=== PATIENT | female | born 1975 | race Hispanic/Latino ===

== ENCOUNTER 2018-04-28 14:39 | Inpatient (IN) | payer OTHER ==
[~2018-04-28] VITALS: Ht 154.9 cm; Wt 84.1 kg
[2018-04-28] MEDS ORDERED: KETOROLAC TROMETHAMINE 30 MG/ML VIAL IV STA (15:38)
[2018-04-28] MEDS ORDERED: ONDANSETRON HCL INJ 2 MG/ML VIAL IV STA (15:46)
[2018-04-28] MEDS ORDERED: SODIUM CHLORIDE 0.9% 1000ML 1,000 ML IV SCH (16:00)
--- NOTE | 2018-04-28 16:48 | Diagnostic Imaging Report ---
EXAM: Right upper quadrant abdominal ultrasound INDICATION: Right upper quadrant pain COMPARISON: None. TECHNIQUE: Transverse and longitudinal images of the right upper quadrant abdomen were obtained FINDINGS: Liver: Size: Measures 16 cm in the right midclavicular line, normal Appearance: Increased echogenicity, smooth contour Mass: No focal masses Gallbladder: No distension, pericholecystic fluid, wall thickening, stone, or reported sonographic Ly's sign. Gallbladder wall measures 0.35 cm. Small amount of sludge is present at the gallbladder neck. Bile Ducts: Intrahepatic Ducts: No dilatation Extrahepatic Ducts: Common bile duct measures 0.5 cm, no dilatation Pancreas: Partially visualized. The visualized portions of the pancreas appear unremarkable. Kidney: The right kidney measures 9.7 x 4.9 x 5 cm without evidence of hydronephrosis or stone. Vessels: Aorta: Not well seen. Inferior Vena Cava: Not well seen. Main Portal Vein: 1.1 cm, normal size with hepatopetal flow. Free Fluid: No ascites or pleural effusion IMPRESSION: Hepatomegaly with hepatic steatosis. Small amount of gallbladder sludge without sonographic evidence of cholecystitis. Signed by: Dr. Kathrine Newsome MD on 04/28/2018 4:45 PM
[2018-04-28] MEDS ORDERED: HYDROMORPHONE 1MG/1ML INJ IV PRN (18:00)
[2018-04-28] MEDS ORDERED: PIPER-TAZ 3.375 GM / NS 50ML IV SCH (18:00)
[2018-04-28] MEDS ORDERED: MORPHINE SULFATE 2 MG/ML SYR IV STA (18:01)
[2018-04-28] MEDS: ONDANSETRON HCL INJ 2 MG/ML VIAL IV PRN ×2 (18:30→22:40)
[2018-04-28 21:04] LABS: BASOPHILS # (AUTO) 0.1 (0.0-0.1); BASOPHILS % 0.4 % (0.0-1.0); EOSINOPHILS % 0.2 % (0.0-6.0); HEMATOCRIT 40.6 % (34.2-44.1); HEMOGLOBIN 15.6 g/dL (12.0-16.0); LYMPHOCYTES # (AUTO) 0.8 (1.0-3.2); LYMPHOCYTES % 5.8 % (18.0-39.1); MEAN CORPUSCULAR HEMOGLOBIN 35.5 pg (28-32); MEAN CORPUSCULAR HGB CONC 38.4 g/dL (31-35); MEAN CORPUSCULAR VOLUME 92.5 fL (81-99); MONOCYTES # (AUTO) 0.6 (0.2-0.8); MONOCYTES % 4.7 % (4.4-11.3); NEUTROPHILS % 88.7 % (38.7-80.0); PLATELET COUNT 286 x10e3/uL (140-360); RED BLOOD COUNT 4.39 x10e6/uL (3.6-5.1); RED CELL DISTRIBUTION WIDTH 13.2 % (11.7-14.4)
[2018-04-28 21:15] LABS: ALBUMIN/GLOBULIN RATIO 0.6 (0.8-2.0); ALKALINE PHOSPHATASE 71 IU/L (40-150); AMYLASE 338 U/L (25-125); BLOOD UREA NITROGEN 11 mg/dL (7-26); BUN/CREATININE RATIO 14 (6-25); CHLORIDE 96 mmol/L (98-107); CREATININE, SERUM 0.77 mg/dL (0.57-1.11); EST GLOMERULAR FILTRATION RATE > 60 ML/MIN (60-); GLUCOSE 97 mg/dL (74-118); POTASSIUM 3.9 mmol/L (3.5-5.1); SODIUM 129 mmol/L (136-145)
[2018-04-28 21:16] VITALS: BP 143/84
[2018-04-28 21:26] VITALS: BP 143/84
[2018-04-28] MEDS: D5.45%NS/KCL 20MEQ 1,000 ML IV SCH (22:37)
[2018-04-28] MEDS: HYDROMORPHONE 2MG/ML 2 MG/ML ML IV PRN (22:40)
[2018-04-29 00:14] VITALS: BP 129/64
[2018-04-29] MEDS: PIPER-TAZ 3.375 GM 50 ML IV SCH ×3 (00:21→12:16)
[2018-04-29] MEDS: ONDANSETRON HCL INJ 2 MG/ML VIAL IV PRN ×4 (02:45→14:56)
[2018-04-29] MEDS: HYDROMORPHONE 2MG/ML 2 MG/ML ML IV PRN ×6 (02:45→23:57)
[2018-04-29 05:23] VITALS: BP 100/59
[2018-04-29 05:53] LABS: CHOL/HDL RATIO 18.4 (3.0-3.6)
[2018-04-29 06:42] LABS: BASOPHILS % 0.3 % (0.0-1.0); EOSINOPHILS % 0.1 % (0.0-6.0); HEMATOCRIT 41.1 % (34.2-44.1); HEMOGLOBIN 14.5 g/dL (12.0-16.0); LYMPHOCYTES # (AUTO) 0.5 (1.0-3.2); LYMPHOCYTES % 3.2 % (18.0-39.1); MEAN CORPUSCULAR HEMOGLOBIN 32.4 pg (28-32); MEAN CORPUSCULAR HGB CONC 35.3 g/dL (31-35); MEAN CORPUSCULAR VOLUME 91.9 fL (81-99); MONOCYTES # (AUTO) 0.6 (0.2-0.8); NEUTROPHILS % 92.1 % (38.7-80.0); PLATELET COUNT 190 x10e3/uL (140-360); RED BLOOD COUNT 4.47 x10e6/uL (3.6-5.1); RED CELL DISTRIBUTION WIDTH 13.2 % (11.7-14.4)
[2018-04-29 08:41] VITALS: BP 107/67
[2018-04-29 08:42] LABS: AMYLASE 1498 U/L (25-125)
[2018-04-29 09:00] VITALS: BP 107/67
[2018-04-29 09:09] LABS: LIPASE 1714 U/L (8-78)
[2018-04-29] MEDS: D5.45%NS/KCL 20MEQ 1,000 ML IV SCH (12:16)
[2018-04-29] MEDS ORDERED: DEXTROSE 5%/0.9% SOD CHL 1,000 ML IV SCH (14:15)
[2018-04-29] MEDS: INSULIN REGULAR, HUMAN 3ML VL 100 UNIT in SODIUM CHLORIDE 0.9% 100 ML 100 ML IV SCH ×2 (14:56)
[2018-04-29 15:15] VITALS: BP 112/68
[2018-04-29] MEDS ORDERED: HYDROMORPHONE 2MG/ML 2 MG/ML ML IV PRN (16:00)
[2018-04-29] MEDS: FAMOTIDINE 20 MG/2 ML VIAL IV SCH (16:27)
[2018-04-29] MEDS: HEPARIN SOD (PORCINE) 5,000 UNIT/ML VIAL SC SCH (17:37)
[2018-04-29 20:14] VITALS: BP 116/78
[2018-04-29] MEDS: SODIUM CHLORIDE 23.4% 154 MEQ in DEXTROSE 10% 1,000 ML IV SCH (20:22)
[2018-04-30] MEDS: SODIUM CHLORIDE 23.4% 154 MEQ in DEXTROSE 10% 1,000 ML IV SCH ×2 (01:41→09:00)
[2018-04-30] MEDS: HYDROMORPHONE 2MG/ML 2 MG/ML ML IV PRN ×5 (05:10→20:15)
[2018-04-30 06:47] LABS: BASOPHILS % 0.3 % (0.0-1.0); EOSINOPHILS % 0.1 % (0.0-6.0); HEMATOCRIT 38.2 % (34.2-44.1); LYMPHOCYTES # (AUTO) 0.5 (1.0-3.2); LYMPHOCYTES % 3.4 % (18.0-39.1); MEAN CORPUSCULAR HEMOGLOBIN 31.4 pg (28-32); MEAN CORPUSCULAR VOLUME 92.3 fL (81-99); MONOCYTES # (AUTO) 0.5 (0.2-0.8); MONOCYTES % 3.6 % (4.4-11.3); NEUTROPHILS # (AUTO) 13.4 (2.1-6.9); NEUTROPHILS % 92.1 % (38.7-80.0); PLATELET COUNT 193 x10e3/uL (140-360); RED BLOOD COUNT 4.14 x10e6/uL (3.6-5.1); RED CELL DISTRIBUTION WIDTH 13.8 % (11.7-14.4)
[2018-04-30 06:58] LABS: INR 1.15; PARTIAL THROMBOPLASTIN TIME 37.6 seconds (23.8-35.5); PROTHROMBIN TIME 15.7 seconds (11.9-14.5)
[2018-04-30 07:11] LABS: ALANINE AMINOTRANSFERASE 16 IU/L (0-55); ALBUMIN 2.2 g/dL (3.5-5.0); ALKALINE PHOSPHATASE 50 IU/L (40-150); ANION GAP 14.1 mmol/L (8-16); BILIRUBIN,DIRECT 0.3 mg/dL (0.0-0.5); BLOOD UREA NITROGEN 8 mg/dL (7-26); BUN/CREATININE RATIO 12 (6-25); CARBON DIOXIDE 17 mmol/L (22-29); CHLORIDE 111 mmol/L (98-107); CHOL/HDL RATIO 8.6 (3.0-3.6); CHOLESTEROL 259 MD/DL (0-199); CREATININE, SERUM 0.67 mg/dL (0.57-1.11); EST GLOMERULAR FILTRATION RATE > 60 ML/MIN (60-); GLUCOSE 157 mg/dL (74-118); HDL CHOLESTEROL 30 MG/DL (40-60); LIPASE 332 U/L (8-78); POTASSIUM 3.1 mmol/L (3.5-5.1); SODIUM 139 mmol/L (136-145); TRIGLYCERIDES 431 MG/DL (0-149)
[2018-04-30 07:17] LABS: CALCIUM 6.3 mg/dL (8.4-10.2)
[2018-04-30 07:31] LABS: THYROID STIMULATING HORMONE 0.419 uIU/mL (0.350-4.940)
[2018-04-30 07:45] VITALS: BP 111/62
[2018-04-30 07:52] VITALS: BP 111/62
[2018-04-30] MEDS: HEPARIN SOD (PORCINE) 5,000 UNIT/ML VIAL SC SCH ×2 (08:11→22:56)
[2018-04-30] MEDS: FAMOTIDINE 20 MG/2 ML VIAL IV SCH ×2 (08:11→16:03)
[2018-04-30] MEDS ORDERED: CALCIUM GLUCONATE 10% INJ 4.65 MEQ in SODIUM CHLORIDE 0.9% 50ML 50 ML IV ONE (09:00)
[2018-04-30] MEDS ORDERED: POTASSIUM CHLORIDE 20MEQ/100ML 200 ML IV ONE (10:00)
[2018-04-30] MEDS ORDERED: SODIUM CHLORIDE 0.9% 250ML 250 ML ONE (10:14)
[2018-04-30 11:42] VITALS: BP 149/85
[2018-04-30] MEDS: INSULIN REGULAR, HUMAN 3ML VL 100 UNIT in SODIUM CHLORIDE 0.9% 100 ML 100 ML IV SCH ×2 (12:14)
[2018-04-30] MEDS: ONDANSETRON HCL INJ 2 MG/ML VIAL IV PRN ×3 (12:46→20:20)
[2018-04-30] MEDS: SODIUM CHLORIDE 0.45% 1,000 ML IV SCH ×3 (13:08→23:00)
--- NOTE | 2018-04-30 14:58 | Progress Note ---
DATE: April 30, 2018 SUBJECTIVE: The patient has less abdominal pain, although she is still has some pain. She does not have any nausea or vomiting. PHYSICAL EXAMINATION VITAL SIGNS: Patient is afebrile. The blood pressure is 149/85 and the saturation is 97%. The heart rate is 115 and the temperature is 100.8. CARDIAC: Reveals regular rate and rhythm with normal S1 and S2. LUNGS: Auscultation of the lungs reveals clear breath sounds bilaterally. There is no wheezing. ABDOMEN: Tender. There is no rebound or guarding. EXTREMITIES: Show no leg edema or calf tenderness. IMPRESSION 1. Pancreatitis secondary to hypertriglyceridemia. 2. Lipid disorder. 3. Hypokalemia. PLAN 1. Continue bowel rest. 2. Continue IV fluids. 3. Pain control. 4. Monitor pancreatic enzymes. Job#: [id number] JESS
[2018-04-30 16:14] VITALS: BP 148/72
[2018-04-30] MEDS: ACETAMINOPHEN 650 MG SUPP PR PRN (16:32)
[2018-04-30 20:00] VITALS: BP 115/59
[2018-04-30 20:43] LABS: CLARITY,URINE HAZY (CLEAR); COLOR,URINE AMBER (YELLOW)
[2018-04-30 20:44] LABS: BILIRUBIN,URINE NEGATIVE (NEGATIVE); KETONES,URINE 1+ (NEGATIVE); LEUKOCYTE ESTERASE ,URINE NEGATIVE (NEGATIVE); NITRITE,URINE NEGATIVE (NEGATIVE); PROTEIN,URINE DIPSTICK 2+ (NEGATIVE); URINE UROBILINOGEN 0.2 mg/dL (0.2 - 1)
[2018-04-30 21:40] LABS: EPITHELIAL CELLS,URINE MANY /LPF
[2018-04-30 21:41] LABS: BACTERIA,URINE FEW /HPF; RBC,URINE >50 /HPF (0-5)
[2018-05-01] VITALS (7 sets, daily range): BP systolic 107–135; BP diastolic 43–90
[2018-05-01] MEDS: HYDROMORPHONE 2MG/ML 2 MG/ML ML IV PRN ×4 (00:51→17:49)
[2018-05-01] MEDS: ONDANSETRON HCL INJ 2 MG/ML VIAL IV PRN ×4 (00:51→17:49)
[2018-05-01] MEDS: SODIUM CHLORIDE 0.45% 1,000 ML IV SCH ×4 (04:55→19:21)
[2018-05-01 06:13] LABS: BASOPHILS % 0.2 % (0.0-1.0); EOSINOPHILS % 0.2 % (0.0-6.0); HEMATOCRIT 33.9 % (34.2-44.1); HEMOGLOBIN 11.5 g/dL (12.0-16.0); LYMPHOCYTES # (AUTO) 0.5 (1.0-3.2); LYMPHOCYTES % 4.3 % (18.0-39.1); MEAN CORPUSCULAR HEMOGLOBIN 31.5 pg (28-32); MEAN CORPUSCULAR HGB CONC 33.9 g/dL (31-35); MEAN CORPUSCULAR VOLUME 92.9 fL (81-99); MONOCYTES # (AUTO) 0.5 (0.2-0.8); MONOCYTES % 4.7 % (4.4-11.3); NEUTROPHILS # (AUTO) 10.2 (2.1-6.9); NEUTROPHILS % 89.5 % (38.7-80.0); PLATELET COUNT 189 x10e3/uL (140-360); RED BLOOD COUNT 3.65 x10e6/uL (3.6-5.1); RED CELL DISTRIBUTION WIDTH 13.7 % (11.7-14.4)
[2018-05-01 06:38] LABS: ALANINE AMINOTRANSFERASE 14 IU/L (0-55); ALBUMIN 2.3 g/dL (3.5-5.0); ALBUMIN/GLOBULIN RATIO 0.7 (0.8-2.0); ALKALINE PHOSPHATASE 68 IU/L (40-150); AMYLASE 129 U/L (25-125); ANION GAP 13.5 mmol/L (8-16); BLOOD UREA NITROGEN 5 mg/dL (7-26); BUN/CREATININE RATIO 8 (6-25); CALCIUM 7.3 mg/dL (8.4-10.2); CARBON DIOXIDE 19 mmol/L (22-29); CHLORIDE 108 mmol/L (98-107); EST GLOMERULAR FILTRATION RATE > 60 ML/MIN (60-); GLUCOSE 116 mg/dL (74-118); LIPASE 141 U/L (8-78); POTASSIUM 3.5 mmol/L (3.5-5.1); SODIUM 137 mmol/L (136-145); TRIGLYCERIDES 387 MG/DL (0-149)
[2018-05-01] MEDS: ACETAMINOPHEN 650 MG SUPP PR PRN (08:00)
--- NOTE | 2018-05-01 08:14 | Diagnostic Imaging Report ---
EXAM: CT Abdomen WITH contrast INDICATION: Pancreatitis COMPARISON: 04/28/2018 ultrasound, no report available. TECHNIQUE: Abdomen was scanned utilizing a multidetector helical scanner after administration of IV contrast. Coronal and sagittal reformations were obtained. IV CONTRAST: 100 mL Isovue-370 COMPLICATIONS: None RADIATION DOSE: Total DLP:411 mGy*cm Estimated effective dose: (DLP x 0.015 x size factor) mSv CTDIvol has been reviewed. It is below the limits set by the Radiation Protocol Committee (RPC). Appropriate CT dose reduction techniques were utilized. FINDINGS: Abdomen: Lung Bases: Breast implants partially visualized. Small bilateral pleural effusions are present with bibasilar atelectasis. Solid Organs: Mild decreased attenuation of the liver. The gallbladder is distended. There is a small amount of increased density material dependently in the gallbladder, best seen series 2 image 33. Marked inflammatory changes are present about the pancreas. Pancreas overall enhances with no distinct rim-enhancing fluid collections identified. Adrenals, kidneys, and spleen are unremarkable. Upper GI Tract: No small bowel obstructive changes. Vascularity: No aortic aneurysm. Lymph Nodes: Limited evaluation. Other: Small to moderate amount of free fluid with moderate inflammatory changes in the central mesentery. Postsurgical changes ventral abdominal wall. Pelvis: Not included. Bones: No acute findings. IMPRESSION: 1. Moderate changes of pancreatitis with significant inflammatory changes and fluid about the pancreas. The pancreas overall enhances with no distinct focal or rim-enhancing peripancreatic fluid collections. 2. Small amount of dependent material in the gallbladder suggests sludge and/or small stones. MRCP or ERCP could be obtained for further evaluation if indicated. 3. Mild hepatic steatosis. 4. Small bilateral pleural effusions with bibasilar atelectasis. Signed by: Dr. Fuad Simon MD on 05/01/2018 8:11 AM
[2018-05-01] MEDS: FAMOTIDINE 20 MG/2 ML VIAL IV SCH ×2 (08:43→16:27)
[2018-05-01] MEDS: HEPARIN SOD (PORCINE) 5,000 UNIT/ML VIAL SC SCH ×2 (08:44→23:08)
[2018-05-01 09:42] LABS: BAND NEUTROPHILS % (MANUAL) 7 %; LYMPHOCYTES % (MANUAL) 2 % (19-48); MONOCYTES % (MANUAL) 3 % (3.4-9.0); NEUTROPHILS % (MANUAL) 88 % (40-74); RBC MORPHOLOGY COMMENT NORMAL
[2018-05-01 09:43] LABS: PLATELET ESTIMATE ADEQUATE; PLATELET MORPHOLOGY COMMENT FEW LARGE
--- NOTE | 2018-05-01 13:14 | Progress Note ---
DATE: May 01, 2018 SUBJECTIVE: The patient had some increased abdominal pain last night. She required a repeat CT scan of the abdomen. Her pain is better controlled now. She is not having nausea or vomiting. She does not have fevers. OBJECTIVE VITAL SIGNS: The T-max was 101, the blood pressure is 126/90, and the O2 saturation is 92% on room air. The pulse is 116. HEENT: Shows no facial swelling or erythema. LYMPHATIC: Shows no submandibular, cervical, or supraclavicular adenopathy. CARDIAC: Reveals regular rate and rhythm with normal S1 and S2. LUNGS: Auscultation of the lungs reveals decreased breath sounds at the bases. ABDOMEN: Sightly tender. There is no rebound or guarding. EXTREMITIES: Show no leg edema or calf tenderness. LABORATORY DATA: The amylase is 129 and the lipase is 141. The BUN to creatinine ratio is normal. The other electrolytes are significant for carbon dioxide of 19 and a potassium of 3.5. The white blood cell count is 11.4 and the hemoglobin is 11.5. The platelet count is 189. IMPRESSION 1. Pancreatitis. 2. Elevated triglycerides. 3. Fevers. PLAN 1. Continue IV fluids. 2. Continue bowel rest and pain medication. 3. Patient has been re-cultured. 4. Continue current antibiotics. Job#: [id number] JESS
[2018-05-01] MEDS: PIPER-TAZ 3.375 GM 50 ML IV SCH ×2 (13:26→23:08)
[2018-05-01] MEDS ORDERED: HYDROMORPHONE 2MG/ML 2 MG/ML ML IV PRN (14:00)
[2018-05-01] MEDS ORDERED: SODIUM CHLORIDE 0.9% 50ML 50 ML ONE (18:26)
[2018-05-01] MEDS ORDERED: IOPAMIDOL 370 MG/ML 200 ML INFUS..BTL INJ ONE (18:26)
--- NOTE | 2018-05-01 22:07 | Consultation ---
DATE OF CONSULTATION: May 01, 2018 GI CONSULTATION REFERRING PHYSICIAN: Dr. Marquez (sp?) REASON FOR CONSULTATION: Pancreatitis. HISTORY OF PRESENT ILLNESS: Ms. Tejal Pedraza is a 43-year-old lady, who came into the hospital with complaints of abdominal discomfort. At the time of my evaluation, she appears to be still in pain. Says that she had been going to the doctors for the past 4 years for abdominal pain, and she has been struggling with her hyperlipidemia, but this is her first episode of pancreatitis. She denies any alcohol use. She had an ultrasound of the abdomen, which did not reveal any gallstones. CT scan showed mild inflammatory changes suggestive of pancreatitis. Her bowel movements are normal. PAST MEDICAL HISTORY: Hyperlipidemia, GERD. MEDICATIONS: See MAR. ALLERGIES: SEE MAR. SOCIAL HISTORY: Does not smoke, does not drink. PHYSICAL EXAMINATION: GENERAL: She does appear to be in discomfort. HEENT: Anicteric. No nodes. No thyromegaly. LUNGS: Clear to auscultation. CVS: S1 and S2 normal. No murmur. ABDOMEN: Soft. Presence of mild diffuse tenderness. Some guarding. EXTREMITIES: No edema. LABS AND X-RAYS: Her EKG normal. CBC normal. Comprehensive metabolic panel normal. Lipase is elevated. CT scan of the abdomen showed inflammatory changes around the pancreas. IMPRESSION: Pancreatitis, most likely secondary to the hyperlipidemia. No evidence of any gallstones. No evidence of alcohol use. RECOMMENDATIONS AND PLAN: NPO, IV fluids, aggressive IV hydration, proton pump inhibitor therapy, blood cultures if fever. Patient may have sips of water. Pain management. Aggressive control of her hyperlipidemia. Further recommendations pending hospital course. Job#: [id number]
[2018-05-02] VITALS (8 sets, daily range): BP systolic 130–147; BP diastolic 68–79
[2018-05-02] MEDS: ONDANSETRON HCL INJ 2 MG/ML VIAL IV PRN ×3 (03:05→12:55)
[2018-05-02] MEDS: HYDROMORPHONE 2MG/ML 2 MG/ML ML IV PRN ×9 (03:05→23:15)
[2018-05-02] MEDS: SODIUM CHLORIDE 0.45% 1,000 ML IV SCH ×4 (04:04→21:54)
[2018-05-02 05:39] LABS: ALANINE AMINOTRANSFERASE 14 IU/L (0-55); ALBUMIN 2.3 g/dL (3.5-5.0); ALBUMIN/GLOBULIN RATIO 0.6 (0.8-2.0); ALKALINE PHOSPHATASE 79 IU/L (40-150); AMYLASE 55 U/L (25-125); ANION GAP 16.3 mmol/L (8-16); BLOOD UREA NITROGEN 5 mg/dL (7-26); BUN/CREATININE RATIO 8 (6-25); CALCIUM 7.9 mg/dL (8.4-10.2); CARBON DIOXIDE 22 mmol/L (22-29); CHLORIDE 103 mmol/L (98-107); CREATININE, SERUM 0.64 mg/dL (0.57-1.11); EST GLOMERULAR FILTRATION RATE > 60 ML/MIN (60-); GLUCOSE 104 mg/dL (74-118); LIPASE 85 U/L (8-78); POTASSIUM 4.3 mmol/L (3.5-5.1); SODIUM 137 mmol/L (136-145); TRIGLYCERIDES 323 MG/DL (0-149)
[2018-05-02] MEDS: FAMOTIDINE 20 MG/2 ML VIAL IV SCH ×2 (09:16→15:55)
[2018-05-02] MEDS: PIPER-TAZ 3.375 GM 50 ML IV SCH ×3 (09:16→21:56)
[2018-05-02] MEDS: HEPARIN SOD (PORCINE) 5,000 UNIT/ML VIAL SC SCH ×2 (09:17→21:00)
[2018-05-02] MEDS: ACETAMINOPHEN 650 MG SUPP PR PRN ×2 (11:27→18:13)
[2018-05-02] MEDS: IPRATROPIUM BROMIDE 0.02% 2.5 ML NEB NEB SCH ×3 (12:15→19:40)
[2018-05-02 13:07] LABS: CLARITY,URINE SL CLOUDY (CLEAR); COLOR,URINE YELLOW (YELLOW); LEUKOCYTE ESTERASE ,URINE NEGATIVE (NEGATIVE); NITRITE,URINE NEGATIVE (NEGATIVE)
[2018-05-02 13:08] LABS: BILIRUBIN,URINE 2+ (NEGATIVE); KETONES,URINE 2+ (NEGATIVE); PROTEIN,URINE DIPSTICK 1+ (NEGATIVE); URINE UROBILINOGEN 1 mg/dL (0.2 - 1)
[2018-05-02 13:20] LABS: EPITHELIAL CELLS,URINE RARE /LPF; WBC,URINE (MAN) 21-50 /HPF (0-5)
[2018-05-02] MEDS: METOPROLOL TARTRATE INJ 1 MG/ML VIAL IV SCH ×3 (13:21→23:51)
--- NOTE | 2018-05-02 13:51 | Diagnostic Imaging Report ---
EXAMINATION: CHEST SINGLE (PORTABLE) INDICATION: Shortness of breath. COMPARISON: CT abdomen 05/01/2018. Gallbladder ultrasound 04/28/2018. FINDINGS: AP view TUBES and LINES: None. LUNGS: Lungs are not well inflated. Bibasilar atelectasis, left greater right. There is no evidence of pneumonia or pulmonary edema. PLEURA: Small left pleural effusion. HEART AND MEDIASTINUM: The cardiomediastinal silhouette is unremarkable. BONES AND SOFT TISSUES: No acute osseous lesion. Soft tissues are unremarkable. UPPER ABDOMEN: No free air under the diaphragm. IMPRESSION: Small left pleural effusion with bibasilar atelectasis, left greater than right. On previous CT abdomen there was also a small right pleural effusion. Signed by: Dr. Soham Snyder M.D. on 05/02/2018 1:47 PM
--- NOTE | 2018-05-02 18:03 | Diagnostic Imaging Report ---
EXAMINATION: CHEST SINGLE (PORTABLE) INDICATION: \S\VERIFIY PICC LINE PLACEMENT AND OK TO USE \S\[id number] \S\1719 \S\Y COMPARISON: Chest radiograph 05/02/2018 FINDINGS: AP view TUBES and LINES: Right upper extremity PICC with tip overlying the cavoatrial junction. LUNGS: Lungs are moderate inflated. Hilar fullness with interstitial prominence. PLEURA: Small bilateral pleural effusions. HEART AND MEDIASTINUM: The cardiomediastinal silhouette is unremarkable. BONES AND SOFT TISSUES: No acute osseous lesion. Soft tissues are unremarkable. UPPER ABDOMEN: No free air under the diaphragm. IMPRESSION: RIght upper extremity PICC tip overlies the cavoatrial junction. Interstitial edema with small pleural effusions. Signed by: DR. Nick Montgomery MD on 05/02/2018 6:00 PM
[2018-05-03] VITALS (9 sets, daily range): BP systolic 115–132; BP diastolic 70–85
[2018-05-03] MEDS: HYDROMORPHONE 2MG/ML 2 MG/ML ML IV PRN ×7 (02:05→22:00)
[2018-05-03] MEDS: SODIUM CHLORIDE 0.45% 1,000 ML IV SCH ×4 (03:00→20:31)
[2018-05-03] MEDS: ACETAMINOPHEN 650 MG SUPP PR PRN ×2 (03:30→09:50)
[2018-05-03] MEDS: PIPER-TAZ 3.375 GM 50 ML IV SCH ×3 (05:42→21:41)
[2018-05-03] MEDS: METOPROLOL TARTRATE INJ 1 MG/ML VIAL IV SCH ×2 (05:48→12:25)
[2018-05-03 06:04] LABS: BASOPHILS % 0.4 % (0.0-1.0); EOSINOPHILS # (AUTO) 0.1 (0.0-0.4); HEMOGLOBIN 9.8 g/dL (12.0-16.0); LYMPHOCYTES # (AUTO) 0.6 (1.0-3.2); LYMPHOCYTES % 7.1 % (18.0-39.1); MEAN CORPUSCULAR HEMOGLOBIN 31.5 pg (28-32); MEAN CORPUSCULAR HGB CONC 33.8 g/dL (31-35); MEAN CORPUSCULAR VOLUME 93.2 fL (81-99); MONOCYTES % 11.5 % (4.4-11.3); NEUTROPHILS % 78.8 % (38.7-80.0); PLATELET COUNT 200 x10e3/uL (140-360); RED BLOOD COUNT 3.11 x10e6/uL (3.6-5.1); RED CELL DISTRIBUTION WIDTH 13.1 % (11.7-14.4)
[2018-05-03 06:28] LABS: ALANINE AMINOTRANSFERASE 20 IU/L (0-55); ALBUMIN 2.2 g/dL (3.5-5.0); ALKALINE PHOSPHATASE 77 IU/L (40-150); ANION GAP 15.2 mmol/L (8-16); BILIRUBIN,DIRECT 2.2 mg/dL (0.0-0.5); BLOOD UREA NITROGEN 7 mg/dL (7-26); BUN/CREATININE RATIO 12 (6-25); CALCIUM 8.2 mg/dL (8.4-10.2); CARBON DIOXIDE 21 mmol/L (22-29); CHLORIDE 104 mmol/L (98-107); EST GLOMERULAR FILTRATION RATE > 60 ML/MIN (60-); GLUCOSE 91 mg/dL (74-118); LIPASE 48 U/L (8-78); POTASSIUM 3.2 mmol/L (3.5-5.1); SODIUM 137 mmol/L (136-145)
[2018-05-03] MEDS: IPRATROPIUM BROMIDE 0.02% 2.5 ML NEB NEB SCH ×2 (07:15→11:30)
[2018-05-03] MEDS: FAMOTIDINE 20 MG/2 ML VIAL IV SCH ×2 (08:03→16:20)
[2018-05-03] MEDS: HEPARIN SOD (PORCINE) 5,000 UNIT/ML VIAL SC SCH ×2 (08:03→21:39)
[2018-05-03] MEDS ORDERED: POTASSIUM CHLORIDE 20MEQ/100ML 200 ML IV ONE (08:15)
[2018-05-03] MEDS: ONDANSETRON HCL INJ 2 MG/ML VIAL IV PRN ×3 (09:04→18:00)
[2018-05-03 10:01] LABS: EOSINOPHILS % (MANUAL) 1 % (0-7); LYMPHOCYTES % (MANUAL) 11 % (19-48); MONOCYTES % (MANUAL) 9 % (3.4-9.0); NEUTROPHILS % (MANUAL) 79 % (40-74)
[2018-05-03 10:02] LABS: PLATELET ESTIMATE ADEQUATE; PLATELET MORPHOLOGY COMMENT NORMAL; RBC MORPHOLOGY COMMENT NORMAL
[2018-05-03] MEDS ORDERED: METOPROLOL TARTRATE INJ 1 MG/ML VIAL IV PRN (13:00)
--- OUTSIDE RECORDS SUMMARY | 2018-05-03 13:14 | XMS REPORT ---
Author Author [facility] Address Unknown Phone Unavailable Care Team Providers Care Color Maker Formulator Name Role Phone Gosia NICOLE Unavailable Unavailable Problems This patient has no known problems. Allergies, Adverse Reactions, Alerts This patient has no known allergies or adverse reactions. Medications This patient has no known medications. Results Test Description Test Time Test Comments Text Results Atomic Results Result Comments CHEST SINGLE (PORTABLE) 2018-05-02 17:56:00 [place] [address] Patient Name: MARY ELLEN JUNG MR #: [id number] : 1975 Age/Sex: 43/F Req #: [id number] [facility] Physician: CHIO NICOLE MD Ordered by: CHIO NICOLE MD Report #: [id number] Location: [facility] Room/Bed: [place] [address] Procedure: [id number] DX/CHEST SINGLE (PORTABLE) Exam Date: 05/02/18 Exam Time: 1719 REPORT STATUS: Signed EXAMINATION: CHEST SINGLE (PORTABLE) INDICATION: COMPARISON: Chest radiograph 05/02/2018 FINDINGS: AP view TUBES and LINES: Right upper extremity PICC with tip overlying the cavoatrial junction. LUNGS: Lungs are moderate inflated. Hilar fullness with interstitial prominence. PLEURA: Small bilateral pleural effusions. HEART AND MEDIASTINUM: The cardiomediastinal silhouette is unremarkable. BONES AND SOFT TISSUES: No acute osseous lesion. Soft tissues are unremarkable. UPPER ABDOMEN: No free air under the diaphragm. IMPRESSION: RIght upper extremity PICC tip overlies the cavoatrial junction. Interstitial edema with small pleural effusions. Signed by: DR. Nick Avendaño MD on 6:00 PM Dictated By: NICK AVENDAÑO MD 1800 Transcribed By: POP on 05/02/18 1800 COPY TO: CHIO NICOLE MD CHEST SINGLE (PORTABLE) 2018-05-02 13:46:00 [place] [address] Patient Name: MARY ELLEN JUNG MR #: [id number] : 1975 Age/Sex: 43/F Req #: [id number] Adm Physician: CHIO NICOLE MD Ordered by: CHIO NICOLE MD Report #: [id number] Location: [facility] Room/Bed: [place] [address] Procedure: [id number] [id number] DX/CHEST SINGLE (PORTABLE) Exam Date: 05/02/18 Exam Time: 1330 REPORT STATUS: Signed EXAMINATION: CHEST SINGLE (PORTABLE) INDICATION: Shortness of breath. COMPARISON: CT abdomen 05/01/2018. Gallbladder ultrasound 04/28/2018. FINDINGS: AP view TUBES and LINES: None. LUNGS: Lungs are not well inflated. Bibasilar atelectasis, left greater right. There is no evidence of pneumonia or pulmonary edema. PLEURA: Small left pleural effusion. HEART AND MEDIASTINUM: The cardiomediastinal silhouette is unremarkable. BONES AND SOFT TISSUES: No acute osseous lesion. Soft tissues are unremarkable. UPPER ABDOMEN: No free air under the diaphragm. IMPRESSION: Small left pleural effusion with bibasilar atelectasis, left greater than right. On previous CT abdomen there was also a small right pleural effusion. Signed by: Dr. Esperanza Ferrara M.D. on 05/02/2018 1:47 PM Dictated By: ESPERANZA FERRARA MD 1347 Transcribed By: POP on 05/02/18 1347 COPY TO: CHIO NICOLE MD CT ABDOMEN W 2018-05-01 08:07:00 [place] [address] Patient Name: MARY ELLEN JUNG MR #: [id number] : 1975 Age/Sex: 43/F Req #: [id number] Adm Physician: CHIO NICOLE MD Ordered by: CHIO NICOLE MD Report #: [id number] Location: [facility] Room/Bed: [place] [address] Procedure: [id number] CT/CT ABDOMEN W Exam Date: 05/01/18 Exam Time: 0730 REPORT STATUS: Signed EXAM: CT Abdomen WITH contrast INDICATION: Pancreatitis COMPARISON: 04/28/2018 ultrasound, no report available. TECHNIQUE: Abdomen was scanned utilizing a multidetector helical scanner after administration of IV contrast. Coronal and sagittal reformations were obtained. IV CONTRAST: 100 mL Isovue-370 COMPLICATIONS: None RADIATION DOSE: Total DLP:411 mGy*cm Estimated effective dose: (DLP x 0.015 x size factor) mSv CTDIvol has been reviewed. It is below the limits set by the Radiation Protocol Committee (RPC). Appropriate CT dose reduction techniques were utilized. FINDINGS: Abdomen: Lung Bases: Breast implants partially visualized. Small bilateral pleural effusions are present with bibasilar atelectasis. Solid Organs: Mild decreased attenuation of the liver. The gallbladder is distended. There is a small amount of increased density material dependently in the gallbladder, best seen series 2 image 33. Marked inflammatory changes are present about the pancreas. Pancreas overall enhances with no distinct rim-enhancing fluid collections identified. Adrenals, kidneys, and spleen are unremarkable. Upper GI Tract: No small bowel obstructive changes. Vascularity: No aortic aneurysm. Lymph Nodes: Limited evaluation. Other: Small to moderate amount of free fluid w ith moderate inflammatory changes in the central mesentery. Postsurgical changes ventral abdominal wall. Pelvis: Not included. Bones: No acute findings. IMPRESSION: 1. Moderate changes of pancreatitis with significant inflammatory changes and fluid about the pancreas. The pancreas overall enhances with no distinct focal or rim-enhancing peripancreatic fluid collections. 2. Small amount of dependent material in the gallbladder suggests sludge and/or small stones. MRCP or ERCP could be obtained for further evaluation if indicated. 3. Mild hepatic steatosis. 4. Small bilateral pleural effusions with bibasilar atelectasis. Signed by: Dr. Terrence Simon MD on 05/01/2018 8:11 AM Dictated By: TERRENCE SIMON MD 0 Transcribed By: POP on 05/01/18810 COPY TO: CHIO NICOLE MD GALL BLADDER-HOPD 2018-04-28 16:40:00 [place] [address] Patient Name: MARY ELLEN JUNG MR #: [id number] : 1975 Age/Sex: 42/F Req #: [id number] Adm Physician: Ordered by: BAILEE MONTIEL MD Report #: [id number] Location: [facility] Room/Bed: Procedure: [id number] HOPD/US GALL BLADDER- HOPD Exam Date: 04/28/18 Exam Time: 1631 REPORT STATUS: Signed EXAM: Right upper quadrant abdominal ultrasound INDICATION: Right upper quadrant pain COMPARISON: None. TECHNIQUE: Transverse and longitudinal images of the right upper quadrant abdomen were obtained FINDINGS: Liver: Size: Measures 16 cm in the right midclavicular line, normal Appearance: Increased echogenicity, smooth contour Mass: No focal masses Gallbladder: No distension, pericholecystic fluid, wall thickening, stone, or reported sonographic Ly's sign. Gallbladder wall measures 0.35 cm. Small amount of sludge is present at the gallbladder neck. Bile Ducts: Intrahepatic Ducts: No dilatation Extrahepatic Ducts: Common bile duct measures 0.5 cm, no dilatation Pancreas: Partially visualized. The visualized portions of the pancreas appear unremarkable. Kidney: The right kidney measures 9.7 x 4.9 x 5 cm without evidence of hydronephrosis or stone. Vessels: Aorta: Not well seen. Inferior Vena Cava: Not well seen. Main Portal Vein: 1.1 cm, normal size with hepatopetal flow. Free Fluid: No ascites or pleural effusion IMPRESSION: Hepatomegaly with hepatic steatosis. Small amount of gallbladder sludge without sonographic evidence of cholecystitis. Signed by: Dr. Kaye Jordan MD on 04/28/2018 4:45 PM Dictated By: KAYE JORDAN MD Transcribed By: Anastacio SALGUERO on 04/28/181644 COPY TO: BAILEE MONTIEL MD
[2018-05-03] MEDS: IPRATROPIUM BROMIDE 0.02% 2.5 ML NEB NEB PRN ×2 (14:50→19:30)
[2018-05-03] MEDS: ACETAMINOPHEN 325 MG TAB PO PRN (17:53)
--- NOTE | 2018-05-03 19:49 | Diagnostic Imaging Report ---
EXAM: ABDOMEN-1VIEW (KUB), DATE: 05/03/2018 5:48 PM INDICATION: Pain COMPARISON: Chest radiograph 05/02/2018, abdominal CT 05/01/2018 FINDINGS: LINES/TUBES: None BOWEL PATTERN: No evidence for obstruction. Normal amount of stool in the colon. SOFT TISSUES: No abnormal calcifications. No mass effect. IUD projects over the pelvis. Surgical clips project over the lower abdomen. LUNG BASES: Not included BONES: No acute findings. IMPRESSION: Nonobstructive bowel gas pattern. Signed by: DR. Nick Montgomery MD on 05/03/2018 7:45 PM
[2018-05-04] VITALS (12 sets, daily range): BP systolic 115–161; BP diastolic 75–123
[2018-05-04] MEDS: HYDROMORPHONE 2MG/ML 2 MG/ML ML IV PRN ×4 (02:06→18:20)
[2018-05-04] MEDS: PIPER-TAZ 3.375 GM 50 ML IV SCH ×3 (05:23→21:15)
[2018-05-04] MEDS: SODIUM CHLORIDE 0.45% 1,000 ML IV SCH ×4 (05:23→22:00)
[2018-05-04 05:39] LABS: BASOPHILS % 0.2 % (0.0-1.0); EOSINOPHILS # (AUTO) 0.1 (0.0-0.4); HEMOGLOBIN 9.3 g/dL (12.0-16.0); LYMPHOCYTES # (AUTO) 0.7 (1.0-3.2); LYMPHOCYTES % 7.8 % (18.0-39.1); MEAN CORPUSCULAR HEMOGLOBIN 31.4 pg (28-32); MEAN CORPUSCULAR HGB CONC 34.4 g/dL (31-35); MEAN CORPUSCULAR VOLUME 91.2 fL (81-99); MONOCYTES # (AUTO) 0.8 (0.2-0.8); NEUTROPHILS # (AUTO) 6.7 (2.1-6.9); PLATELET COUNT 205 x10e3/uL (140-360); RED BLOOD COUNT 2.96 x10e6/uL (3.6-5.1); RED CELL DISTRIBUTION WIDTH 13.1 % (11.7-14.4)
[2018-05-04 05:50] LABS: ALANINE AMINOTRANSFERASE 26 IU/L (0-55); ALKALINE PHOSPHATASE 73 IU/L (40-150); ANION GAP 14.8 mmol/L (8-16); BILIRUBIN,DIRECT 1.4 mg/dL (0.0-0.5); BLOOD UREA NITROGEN 7 mg/dL (7-26); BUN/CREATININE RATIO 13 (6-25); CALCIUM 7.6 mg/dL (8.4-10.2); CARBON DIOXIDE 19 mmol/L (22-29); CHLORIDE 101 mmol/L (98-107); CREATININE, SERUM 0.56 mg/dL (0.57-1.11); EST GLOMERULAR FILTRATION RATE > 60 ML/MIN (60-); GLUCOSE 101 mg/dL (74-118); LIPASE 33 U/L (8-78); MAGNESIUM 1.6 MG/DL (1.3-2.1); SODIUM 132 mmol/L (136-145)
[2018-05-04 05:53] LABS: POTASSIUM 2.8 mmol/L (3.5-5.1)
[2018-05-04] MEDS ORDERED: POTASSIUM CHLORIDE 20MEQ/100ML 200 ML IV ONE (06:00)
[2018-05-04] MEDS: ACETAMINOPHEN 325 MG TAB PO PRN ×2 (06:49→15:05)
[2018-05-04] MEDS: IPRATROPIUM BROMIDE 0.02% 2.5 ML NEB NEB PRN (07:00)
[2018-05-04] MEDS: ONDANSETRON HCL INJ 2 MG/ML VIAL IV PRN ×2 (09:18→15:20)
[2018-05-04] MEDS: FAMOTIDINE 20 MG/2 ML VIAL IV SCH ×2 (09:18→17:35)
[2018-05-04] MEDS: HEPARIN SOD (PORCINE) 5,000 UNIT/ML VIAL SC SCH ×2 (09:34→21:15)
[2018-05-04] MEDS ORDERED: POTASSIUM CHLORIDE 20MEQ/100ML 100 ML IV ONE ×2 (14:00→16:00)
--- NOTE | 2018-05-04 18:02 | Diagnostic Imaging Report ---
EXAM: CT Abdomen WITH contrast INDICATION: Pancreatitis. Mid abdominal pain. ^pancreatitis ^[id number] ^1715 COMPARISON: None. TECHNIQUE: Abdomen was scanned utilizing a multidetector helical scanner from the lung base to the iliac crest after administration of IV contrast. Coronal and sagittal reformations were obtained. Routine protocol was performed. Scan was performed when during portal venous phase. IV CONTRAST: 100 mL of Isovue-370 ORAL CONTRAST: Water COMPLICATIONS: None RADIATION DOSE: Total DLP: 360.2 mGy*cm Estimated effective dose: (DLP x 0.015 x size factor) mSv CTDIvol has been reviewed. It is below the limits set by the Radiation Protocol Committee (RPC). Dose modulation, iterative reconstruction, and/or weight based adjustment of the mA/kV was utilized to reduce the radiation dose to as low as reasonably achievable. FINDINGS: LINES and TUBES: None. LOWER THORAX: Small pleural effusions with adjacent atelectasis. HEPATOBILIARY: Periportal edema. No focal hepatic lesions. No biliary ductal dilation. GALLBLADDER: Gallbladder is distended. No radio-opaque stones or sludge. No wall thickening. SPLEEN: No splenomegaly. PANCREAS: Acute interstitial edematous pancreatitis. No apparent areas of pancreatic parenchymal hypoenhancement to suggest necrosis. No organized pancreatic/peripancreatic fluid collections. No high attenuating fluid to suggest hemorrhage. ADRENALS: No adrenal nodules KIDNEYS/URETERS: Kidneys enhance symmetrically. No hydronephrosis. No cystic or solid mass lesions. No stones. GI TRACT: No abnormal distention, wall thickening, or evidence of bowel obstruction. Duodenal wall thickening, likely reactive. Stomach does not appear distended to suggest gastric outlet obstruction. LYMPH NODES: No lymphadenopathy. VESSELS: The portal vein appears narrowed in caliber but otherwise patent. Splenic and superior mesenteric veins are grossly patent. Splenic artery is difficult to visualize throughout its course. Celiac, superior mesenteric, and visualized portions of the inferior mesenteric arteries are patent. PERITONEUM / RETROPERITONEUM: Small amount of free fluid in the abdomen. No free air. BONES: There are degenerative changes in the lumbar spine. SOFT TISSUES: Bilateral breast implants. Surgical clips along the anterior abdominal wall. Foci of subcutaneous air along the anterior abdominal wall, likely related to subcutaneous injections. IMPRESSION: Acute interstitial edematous pancreatitis. Small bilateral pleural effusions. Signed by: DR. Nick Montgomery MD on 05/04/2018 5:58 PM
[2018-05-04] MEDS ORDERED: SODIUM CHLORIDE 0.9% 50ML 50 ML ONE (18:32)
[2018-05-04] MEDS ORDERED: IOPAMIDOL 370 MG/ML 200 ML INFUS..BTL INJ ONE (18:32)
[2018-05-05] VITALS (8 sets, daily range): BP systolic 111–135; BP diastolic 71–84
[2018-05-05] MEDS: HYDROMORPHONE 2MG/ML 2 MG/ML ML IV PRN ×2 (04:02→09:45)
[2018-05-05 05:38] LABS: BASOPHILS % 0.4 % (0.0-1.0); EOSINOPHILS # (AUTO) 0.1 (0.0-0.4); EOSINOPHILS % 1.1 % (0.0-6.0); HEMATOCRIT 28.6 % (34.2-44.1); HEMOGLOBIN 9.8 g/dL (12.0-16.0); LYMPHOCYTES # (AUTO) 0.9 (1.0-3.2); MEAN CORPUSCULAR HEMOGLOBIN 31.5 pg (28-32); MEAN CORPUSCULAR HGB CONC 34.3 g/dL (31-35); MONOCYTES # (AUTO) 0.8 (0.2-0.8); MONOCYTES % 8.5 % (4.4-11.3); PLATELET COUNT 211 x10e3/uL (140-360); RED BLOOD COUNT 3.11 x10e6/uL (3.6-5.1)
[2018-05-05 05:58] LABS: ALANINE AMINOTRANSFERASE 34 IU/L (0-55); ALBUMIN 2.1 g/dL (3.5-5.0); ALKALINE PHOSPHATASE 90 IU/L (40-150); ANION GAP 15.4 mmol/L (8-16); BILIRUBIN,DIRECT 1.1 mg/dL (0.0-0.5); BLOOD UREA NITROGEN 8 mg/dL (7-26); BUN/CREATININE RATIO 12 (6-25); CALCIUM 8.5 mg/dL (8.4-10.2); CARBON DIOXIDE 22 mmol/L (22-29); CHLORIDE 102 mmol/L (98-107); CREATININE, SERUM 0.65 mg/dL (0.57-1.11); EST GLOMERULAR FILTRATION RATE > 60 ML/MIN (60-); GLUCOSE 101 mg/dL (74-118); MAGNESIUM 1.8 MG/DL (1.3-2.1); POTASSIUM 3.4 mmol/L (3.5-5.1); SODIUM 136 mmol/L (136-145)
[2018-05-05] MEDS: PIPER-TAZ 3.375 GM 50 ML IV SCH (07:27)
[2018-05-05] MEDS: FAMOTIDINE 20 MG/2 ML VIAL IV SCH ×2 (09:45→18:29)
[2018-05-05] MEDS: HEPARIN SOD (PORCINE) 5,000 UNIT/ML VIAL SC SCH ×2 (09:49→21:07)
[2018-05-05] MEDS: ACETAMINOPHEN 325 MG TAB PO PRN (10:16)
[2018-05-05] MEDS ORDERED: HYDROMORPHONE 2MG/ML 2 MG/ML ML IV PRN (12:15)
[2018-05-05] MEDS ORDERED: POTASSIUM CHLORIDE 20 MEQ TAB CR PO ONE (12:45)
[2018-05-05] MEDS: ACETAMINOPHEN/CODEINE 300MG - 30MG TAB PO PRN ×2 (13:28→19:17)
[2018-05-05] MEDS: SODIUM CHLORIDE 0.45% 1,000 ML IV SCH (18:27)
[2018-05-05] MEDS ORDERED: ALTEPLASE RECOMBINANT 2 MG/2 ML VIAL IV PRN (19:45)
[2018-05-05] MEDS: TEMAZEPAM 15 MG CAP PO PRN (23:00)
--- NOTE | 2018-05-05 23:30 | Consultation ---
DATE OF CONSULTATION: May 05, 2018 CHIEF COMPLAINT: Abdominal pain. HISTORY OF PRESENT ILLNESS: The patient is a 43-year-old female with 1-week history of pain, epigastric area, radiating to the back with nausea, but no vomiting. She denies fever, chills or diarrhea. No previous episode. The patient was found on admission to have elevated lipase and triglyceride. CT scan confirmed acute pancreatitis. Patient was treated with IV hydration, n.p.o., and condition has improved. Workup including CT scan ultrasound showing gallbladder sludge without distention or wall thickening of the gallbladder. PAST MEDICAL HISTORY: As mentioned, positive for hyperlipidemia, GERD. SURGICAL HISTORY: Unremarkable. SOCIAL HABITS: Patient does not smoke and drinks only socially. REVIEW OF SYSTEMS: No chest pain or shortness of breath or cough. EXAM VITAL SIGNS: Stable. Afebrile. Her T-max is 102. GENERAL: She is awake, alert, in [id number] discomfort. HEENT: Sclerae anicteric. NECK: Supple. LUNGS: Clear. HEART: Regular rate, rhythm. ABDOMEN: Soft with some guarding in the epigastric area with no rebound. EXTREMITIES: Without cyanosis, edema. LABS: White cell count is 8.9, hemoglobin of 9.8. Bilirubin was 3, now 1.8 with alkaline phosphatase of 90, serum lipase 33, currently with triglycerides 223. Ultrasound of gallbladder as mentioned showed sludge without gallbladder distention. CT scan showed edema with pancreatitis. ASSESSMENT: Resolving acute pancreatitis. PLAN: HIDA scan to rule out gallbladder dysfunction. Will follow patient closely. Job#: [id number] CQ
[2018-05-06] VITALS (9 sets, daily range): BP systolic 107–133; BP diastolic 74–83
[2018-05-06] MEDS: TEMAZEPAM 15 MG CAP PO PRN ×2 (01:19→21:05)
[2018-05-06] MEDS: SODIUM CHLORIDE 0.45% 1,000 ML IV SCH (06:55)
[2018-05-06] MEDS: HEPARIN SOD (PORCINE) 5,000 UNIT/ML VIAL SC SCH ×2 (08:18→21:07)
[2018-05-06] MEDS: FAMOTIDINE 20 MG/2 ML VIAL IV SCH ×2 (08:18→16:02)
[2018-05-06] MEDS ORDERED: SINCALIDE 3 MCG/VIAL INJ ONE (13:51)
[2018-05-06] MEDS: ACETAMINOPHEN/CODEINE 300MG - 30MG TAB PO PRN (15:21)
--- NOTE | 2018-05-06 17:18 | Diagnostic Imaging Report ---
Hepatobiliary Scan with Gallbladder Ejection Fraction Clinical information: 43 M with acute pancreatitis Technique: Following intravenous administration of 6.5 millicuries of Tc-99m mebrofenin, dynamic images of the abdomen in the anterior projection were obtained through 60 minutes. Sincalide (CCK analog) 1.7 micrograms was administered intravenously over 30 minutes with additional imaging for determination of gallbladder ejection fraction. Discussion: Perfusion of the liver is normal. Extraction of tracer by the liver parenchyma is normal. Tracer appears promptly within the biliary tract. The gallbladder begins to fill by 18 minutes post injection of tracer and fills slowly. Tracer is seen in the small bowel by 46 minutes. The gallbladder ejection fraction with sincalide is 3% (normal greater than 40%). Impression: 1. Filling of the gallbladder excludes acute cystic duct obstruction/acute cholecystitis. 2. The decreased gallbladder ejection fraction of 3% supports the clinical diagnosis of chronic cholecystitis/gallbladder dyskinesia. Acute pancreatitis may interfere with gallbladder contractility. Repeat study may be warranted after the patient recovers. Signed by: Dr. Madeline Garcia M.D. on 05/06/2018 5:15 PM
[2018-05-06] MEDS: HYDROCODONE/APAP 5MG-325MG TAB PO PRN ×2 (17:50→22:18)
[2018-05-06] MEDS: IPRATROPIUM BROMIDE 0.02% 2.5 ML NEB NEB PRN (21:22)
[2018-05-07] VITALS (7 sets, daily range): BP systolic 101–130; BP diastolic 55–78
[2018-05-07] MEDS: ACETAMINOPHEN 325 MG TAB PO PRN (05:23)
[2018-05-07] MEDS: FAMOTIDINE 20 MG/2 ML VIAL IV SCH (08:59)
[2018-05-07] MEDS: HEPARIN SOD (PORCINE) 5,000 UNIT/ML VIAL SC SCH ×2 (08:59→22:06)
[2018-05-07] MEDS ORDERED: HYDROCODONE/APAP 5MG-325MG TAB PO PRN (11:15)
[2018-05-07] MEDS: ONDANSETRON HCL INJ 2 MG/ML VIAL IV PRN (18:39)
--- NOTE | 2018-05-07 19:29 | Consultation ---
DATE OF CONSULTATION: May 07, 2018 GASTROENTEROLOGY CONSULT NOTE SUBJECTIVE: Patient reports significant improvement in abdominal pain. She is tolerating oral diet. She also has had a good bowel movement. REVIEW OF SYSTEMS GENERAL: No fever or chills. RESPIRATORY: No cough or expectoration. CVS: No chest pain or palpitation. MEDICATIONS: Reviewed SEP. PHYSICAL EXAMINATION VITAL SIGNS: Temperature 96.8, pulse 90, respirations 18, blood pressure 116/63 to 101/55, and oxygen saturation 99% on room air. GENERAL: Not in any acute distress. HEENT: Oral mucosa is moist. Anicteric sclerae. CVS: S1, S2 regular. LUNGS: Bilaterally grossly clear. ABDOMEN: Soft. Mild epigastric tenderness on deep palpation without rebound, rigidity, or guarding. Ly sign is negative. No right upper quadrant tenderness. EXTREMITIES: Warm. No leg edema. LABS: Sodium 136, potassium 3.4, chloride 102, bicarb 22, BUN 8, and creatinine 0.65. Liver enzymes showed a total bilirubin 1.8 down from 2.0, AST 28, ALT 34, and alkaline phosphatase 90. Lipase level down to 33, triglyceride level has come down to 323 from 1457. HIDA scan done yesterday showed decreased gallbladder ejection fraction to 3% consistent with chronic cholecystitis, filling of the gallbladder exclude acute cystic duct obstruction or acute cholecystitis. CT of the abdomen on this admission done on May 04, 2018 showed acute interstitial edematous pancreatitis and small bilateral pleural effusion. IMPRESSION 1. Patient has recovered well from pancreatitis secondary to hypertriglyceridemia. 2. Chronic cholecystitis based upon HIDA scan; however, patient does not have any abdominal pain and no postprandial symptoms. PLAN: Patient can be discharged home from GI standpoint. Strict control of triglyceride. I have provided some dietary counseling to cut down on eating greasy and fatty meal. Dr. Holley is not planning to do any cholecystectomy for chronic cholecystitis as seen on HIDA scan. I have given patient my business card. I advised her to follow up with me in office within 2 weeks for further GI care and post-hospital discharge visit. Job#: [id number] JESS
[2018-05-07] MEDS: TEMAZEPAM 15 MG CAP PO PRN (22:23)
[2018-05-08 00:17] VITALS: BP 119/70
--- NOTE | 2018-05-08 03:04 | Discharge Summary ---
Entered in error NO DICTATION (00:02) CASI KENNEY MD Job#: [id number] JORGE GREEN
[2018-05-08 05:52] VITALS: BP 109/58
[2018-05-08 08:00] VITALS: BP 123/69
[2018-05-08] MEDS: HEPARIN SOD (PORCINE) 5,000 UNIT/ML VIAL SC SCH (09:00)
[2018-05-08] MEDS ORDERED: GEMFIBROZIL600 MG PO (13:13)
[2018-05-08] MEDS ORDERED: TYLENOL WITH C1 EACH PO (13:14)
[2018-05-08] MEDS ORDERED: CITRATE OF MAGNESIA 300ML BOTTLE PO NR (13:15)
--- NOTE | 2018-05-09 00:26 | Discharge Summary ---
PRIMARY CARE PHYSICIAN: Dr. Georgia Meyer [facility]. FINAL DIAGNOSIS: Severe to acute pancreatitis due to hypertriglyceridemia. SECONDARY DIAGNOSES 1. Gallbladder sludge. 2. Hypokalemia. 3. Obesity. CONSULTANTS 1. Dr. Muñoz, GI. 2. Dr. Holley, surgery. PROCEDURES/STUDIES PERFORMED 1. HIDA scan which did not show any cystic duct obstruction. 2. CT of the abdomen x2. 3. PICC line insertion. 4. Gallbladder ultrasound. HISTORY: Per [facility] and P. HOSPITAL COURSE: Patient was admitted. Her triglyceride on admission was 1457. Despite n.p.o., her lipase went up higher. Therefore, insulin drip was started. We were able to get her triglyceride down to 300 to 400 subsequently. Insulin drip was turned off. We started clear liquid diet. However, she had more pain. Therefore, we had to repeat her CT of the abdomen which did not show any necrosis nor pseudocyst. Subsequently, we were able to wean her off IV Dilaudid and currently patient is tolerating low-fat diet. On admission, her gallbladder ultrasound showed sludge. Dr. Holley was consulted. HIDA scan was done which did not show any cystic duct obstruction; however, the ejection fraction is only 3%. However, acute pancreatitis may interfere with gallbladder contractivity. One may consider repeating the test after patient has recovered. Patient was prescribed gemfibrozil for her hypertriglyceridemia. Patient was seen and examined today. It took 32 minutes total to discharge this patient. I have also updated her primary care doctor as well about this hospitalization. CONDITION ON DISCHARGE: Improved. DISCHARGE MEDICATIONS: Please see medication reconciliation form. CHIO NICOLE M.D. Job#: [id number] cc: MD NORMA WOOD
== END 2018-05-08 14:15 | disposition home or self-care (01) | DRG 440 ==
LOC: FSED 14:39 → ERHOLD 18:00 → MED/SURG2 21:12 → OBSVTOIN 04-29 13:13 → IMCU 04-29 13:18 → MED/SURG2 05-06 16:27
PROVIDERS: ADMIT Internal Medicine; ATTEND Internal Medicine
DX: K85.80 Other acute pancreatitis without necrosis or infection (principal); E87.6 Hypokalemia; E66.9 Obesity, unspecified; Z68.35 Body mass index [BMI] 35.0-35.9, adult; E78.1 Pure hyperglyceridemia; K81.1 Chronic cholecystitis; K21.9 Gastro-esophageal reflux disease without esophagitis
CPT/HCPCS: 36415; 36569; 71045; 74018; 74160; 76705; 78227; 80048; 80053; 80061; 80076; 81001; 81003; 81025; 82150; 82948; 83690; 83735; 84443; 84478; 85025; 85610; 85730; 87040; 93005; 94640; 99284; A9537; G0378; J0610; J1170; J1644; J1885; J2270; J2405; J2543; J2805; J2997; J3480; J7042; J7050; Q9967

== ENCOUNTER 2024-05-10 01:00 | Emergency (ER) | payer OTHER ==
[~2024-05-10] VITALS: Ht 154.9 cm; Wt 83.9 kg
[~2024-05-10 01:00] MED LIST: GEMFIBROZIL600 MG PO; TYLENOL WITH C1 EACH PO
[2024-05-10 01:04] VITALS: TEMP 97.8
[2024-05-10] MEDS: SODIUM CHLORIDE 0.9% 1000ML 1,000 ML IV STA ×2 (01:20)
[2024-05-10] MEDS: ONDANSETRON HCL INJ 2MG/ML 2ML 2 MG/ML VIAL IV STA (01:21)
[2024-05-10] MEDS: FAMOTIDINE 20 MG/2 ML VIAL IV STA (01:21)
[2024-05-10 01:29] VITALS: PULSE 71; RESP 16
[2024-05-10 01:34] LABS: BASOPHILS % 0.7 % (0.0-1.0); EOSINOPHILS # (AUTO) 0.1 (0.0-0.4); EOSINOPHILS % 1.7 % (0.0-6.0); HEMATOCRIT 38.4 % (34.2-44.1); HEMOGLOBIN 13.2 g/dL (12.0-16.0); LYMPHOCYTES # (AUTO) 2.1 (1.0-3.2); LYMPHOCYTES % 35.6 % (18.0-39.1); MEAN CORPUSCULAR HEMOGLOBIN 32.3 pg (28-32); MEAN CORPUSCULAR HGB CONC 34.4 g/dL (31-35); MEAN CORPUSCULAR VOLUME 93.9 fL (81-99); MONOCYTES # (AUTO) 0.5 (0.2-0.8); MONOCYTES % 7.8 % (4.4-11.3); NEUTROPHILS # (AUTO) 3.2 (2.1-6.9); NEUTROPHILS % 53.9 % (38.7-80.0); PLATELET COUNT 277 x10e3/uL (140-360); RED BLOOD COUNT 4.09 x10e6/uL (3.6-5.1); RED CELL DISTRIBUTION WIDTH 12.8 % (11.7-14.4); WHITE BLOOD COUNT 5.92 x10e3/uL (4.8-10.8)
[2024-05-10 01:48] LABS: ALBUMIN 4.2 g/dL (3.5-5.0); ALBUMIN/GLOBULIN RATIO 1.2 (0.8-2.0); BILIRUBIN,TOTAL 0.2 mg/dL (0.2-1.2); CALCIUM 9.3 mg/dL (8.4-10.2); CREATININE, SERUM 0.91 mg/dL (0.57-1.11); TOTAL PROTEIN 7.8 g/dL (6.5-8.1)
[2024-05-10 02:04] LABS: AMPHETAMINES SCREEN,URINE NEGATIVE (NEGATIVE); BENZODIAZEPINES SCREEN,URINE NEGATIVE (NEGATIVE); CANNABINOIDS SCREEN,URINE NEGATIVE (NEGATIVE); CLARITY,URINE CLEAR (CLEAR); COLOR,URINE YELLOW (YELLOW); GLUCOSE, URINE NEGATIVE (NEGATIVE); LEUKOCYTE ESTERASE ,URINE NEGATIVE (NEGATIVE); METHADONE SCREEN, URINE NEGATIVE (NEGATIVE); NITRITE,URINE NEGATIVE (NEGATIVE); OPIATES SCREEN,URINE POSITIVE (NEGATIVE); PH,URINE 6.5 (5 - 7); PHENCYCLIDINE SCREEN,URINE NEGATIVE (NEGATIVE); PROTEIN,URINE DIPSTICK NEGATIVE (NEGATIVE)
[2024-05-10 02:05] LABS: BILIRUBIN,URINE NEGATIVE (NEGATIVE); KETONES,URINE NEGATIVE (NEGATIVE); PREGNANCY TEST, URINE NEGATIVE (NEGATIVE); URINE UROBILINOGEN 0.2 mg/dL (0.2 - 1)
[2024-05-10 03:04] LABS: BACTERIA,URINE FEW /HPF; EPITHELIAL CELLS,URINE FEW /LPF; RBC,URINE 0-5 /HPF (0-5); WBC,URINE (MAN) 0-5 /HPF (0-5)
[2024-05-10] MEDS ORDERED: ONDANSETRON ODT4 MG PO (03:41)
[2024-05-10] MEDS ORDERED: PEPCID AC10 MG PO (03:41)
[2024-05-10 03:44] VITALS: BP 140/83; PULSE 74; RESP 17; TEMP 98.4; O2SAT 100
[2024-05-10] MEDS ORDERED: IOPAMIDOL 370 MG/ML 100 ML INFUS..BTL INJ ONE (07:08)
== END 2024-05-10 03:50 | disposition home or self-care (01) ==
LOC: ER 01:03
DX: R10.13 Epigastric pain (principal); R11.0 Nausea; E78.5 Hyperlipidemia, unspecified; K86.9 Disease of pancreas, unspecified; K21.9 Gastro-esophageal reflux disease without esophagitis
CPT/HCPCS: 36415; 74177; 80053; 80307; 80320; 81001; 81025; 83690; 85025; 99284; J2405; J7030; Q9967